=== PATIENT | female | born 1985 | race Caucasian/White ===

== ENCOUNTER 2017-04-14 20:22 | Observation (INO) | payer MEDICAID | END 2017-04-14 21:43 | disposition home or self-care (01) | DRG 566 | LOC: LDRP 20:22 | PROVIDERS: ADMIT Obstetrics & Gynecology; ATTEND Obstetrics & Gynecology | DX: O26.893 Other specified pregnancy related conditions, third trimester (principal); R10.9 Unspecified abdominal pain; Z3A.39 39 weeks gestation of pregnancy | CPT/HCPCS: 59025; 81002; G0378 ==

== ENCOUNTER 2017-04-24 21:47 | Inpatient (IN) | payer MEDICAID ==
[~2017-04-24] VITALS: Ht 157.5 cm; Wt 103.4 kg
[2017-04-24] MEDS ORDERED: LACTATED RINGER'S 1,000 ML IV SCH (22:05)
[2017-04-24] MEDS ORDERED: LACT. RINGERS/OXYTOCIN 20UNITS 1,000 ML IV SCH (22:05)
[2017-04-24] MEDS ORDERED: METHYLERGONOVINE MALEATE 0.2 MG/ML AMP IM PRN (22:15)
[2017-04-24] MEDS ORDERED: DERMOPLAST 60ML BOTTLE TOP PRN (22:15)
[2017-04-24] MEDS ORDERED: NALBUPHINE HCL 10 MG/1ml INJECTION IV PRN (22:15)
[2017-04-24] MEDS ORDERED: LIDOCAINE 2%HCL (LOCAL ANESTH.) INJ 20ML MDV IJ PRN (22:15)
[2017-04-24] MEDS ORDERED: PHISODERM TOP SOLN 240ML BTL TOP PRN (22:15)
[2017-04-24] MEDS ORDERED: WITCH HAZEL-GLYCERIN PAD TOP PRN (22:15)
[2017-04-24 22:32] LABS: Basophils # (auto) 0 uL; Basophils % (auto) 0.4 % (0.0-2.0); CONDITION Y; Eosinophils # (auto) 0.1 uL; Eosinophils % (auto) 0.5 % (0.0-7.0); Hematocrit 37.7 % (36.0-46.0); Hemoglobin 12.8 g/dL (12.2-16.2); Lymphocytes # (auto) 2.4 uL; Lymphocytes % (auto) 24.8 % (10.0-50.0); Mean Corpuscular Hemoglobin 32.7 pg (28.0-32.0); Mean Corpuscular Hgb Conc. 33.9 g/dL (32.0-36.0); Mean Corpuscular Volume 96.5 fL (80.0-100.0); Mean Platelet Volume 7.8 fL (7.4-10.4); Monocytes # (auto) 0.7 uL; Monocytes % (auto) 7.1 % (0.0-12.0); Neutrophils # (auto) 6.4 uL; Neutrophils % (auto) 67.2 % (37.0-80.0); Platelet Count (auto) 399 10^3/uL (140-450); Red Cell Distribution Width 14.9 % (11.6-16.0); White Blood Cell 9.6 10^3/uL (4.4-10.8)
[2017-04-24 22:41] LABS: Urine Bilirubin Negative (Negative); Urine Blood Negative /uL (Negative); Urine Color Yellow (Yellow); Urine Glucose Normal (Normal); Urine Ketone Negative (Negative); Urine Nitrite Negative (Negative); Urine RBC 8 /hpf (0 - 4); Urine Squamous Epithelial Cell FEW /hpf (<5); Urine Urobilinogen Normal (Negative)
[2017-04-24 22:49] LABS: INR 0.88 (0.9-1.15); Partial Thromboplastin Time 26.8 sec (22.64-33.71); Prothrombin Time 9.6 sec (9.37-12.3)
[2017-04-24 23:02] LABS: Albumin 2.5 g/dL (3.4-5.0); BUN/Creatinine Ratio 14.6; Bilirubin, Total 0.2 mg/dL (0.2-1.0); Calcium 9.1 mg/dL (8.5-10.1); Potassium 3.7 mmol/L (3.5-5.1); Total Protein 6.4 g/dL (6.4-8.2)
[2017-04-25] MEDS ORDERED: PROMETHAZINE HCL 25 MG/ML 1ML IV PRN (02:00)
[2017-04-25] MEDS ORDERED: PREN-96 PO (03:20)
[2017-04-25] MEDS ORDERED: ACETAMINOPHEN 325 MG TAB PO PRN (08:15)
[2017-04-25] MEDS: IBUPROFEN 600 MG TAB PO PRN ×3 (08:19→19:00)
[2017-04-25 11:58] VITALS: BP 110/60
[2017-04-25] MEDS ORDERED: NIFEdipine 10 MG CAP PO SCH (14:00)
[2017-04-25] MEDS ORDERED: TETANUS-DIPTH-ACEL PERTUSSIS 0.5ML SYRG IM ONE (14:15)
[2017-04-25] MEDS ORDERED: RHO (D) IMMUNE GLOBULIN 300 MCG INJ IM ONE (15:30)
[2017-04-25 15:59] VITALS: BP 113/57
[2017-04-25 20:22] VITALS: BP 110/68
[2017-04-25 23:30] VITALS: BP 115/70
[2017-04-26 04:30] VITALS: BP 115/70
[2017-04-26] MEDS: IBUPROFEN 600 MG TAB PO PRN (05:43)
[2017-04-26 06:52] VITALS: BP 101/63
== END 2017-04-26 09:55 | disposition home or self-care (01) | DRG 560 ==
LOC: LDRP 21:47
PROVIDERS: ADMIT Obstetrics & Gynecology; ATTEND Obstetrics & Gynecology
PROC: 10E0XZZ Delivery of Products of Conception, External Approach (ICD-10-PCS; principal; 2017-04-25)
PROC: 4A0HXCZ Measurement of Products of Conception, Cardiac Rate, External Approach (ICD-10-PCS; 2017-04-25)
PROC: 3E0P7GC Introduction of Other Therapeutic Substance into Female Reproductive, Via Natural or Artificial Opening (ICD-10-PCS; 2017-04-25)
PROC: 30233S1 Transfusion of Nonautologous Globulin into Peripheral Vein, Percutaneous Approach (ICD-10-PCS; 2017-04-26)
DX: O48.0 Post-term pregnancy (principal); O40.3XX0 Polyhydramnios, third trimester, not applicable or unspecified; Z37.0 Single live birth; Z3A.40 40 weeks gestation of pregnancy; Z23 Encounter for immunization
CPT/HCPCS: 36415; 59025; 59409; 80053; 80307; 81001; 85025; 85610; 85730; 86850; 86900; 86901; 90384; 90715; 96365; 96366; J2590

== ENCOUNTER → 2020-02-14 | Emergency (ER) | payer MEDICAID ==
[~2020-02-14] VITALS: Ht 154.9 cm; Wt 101.6 kg
[~2020-02-14] MED LIST: LIDOCAINE 1% HCL (LOCAL ANESTH.) INJ 20ML MDV ID ONE; PREN-96 PO
[2020-02-14 19:35] VITALS: BP 130/84
== END | disposition home or self-care (01) ==
LOC: ER 17:57
DX: L02.414 Cutaneous abscess of left upper limb (principal); L03.114 Cellulitis of left upper limb; F17.210 Nicotine dependence, cigarettes, uncomplicated
CPT/HCPCS: 10060; 99282; J2001

== ENCOUNTER 2020-02-16 18:08 | Emergency (ER) | payer MEDICAID ==
[~2020-02-16] VITALS: Ht 154.9 cm; Wt 99.8 kg
[~2020-02-16 18:08] MED LIST changes: -LIDOCAINE 1% HCL (LOCAL ANESTH.) INJ 20ML MDV ID ONE
[2020-02-16 20:10] VITALS: BP 103/64
== END 2020-02-16 21:07 | disposition home or self-care (01) ==
LOC: ER 18:08
DX: L02.414 Cutaneous abscess of left upper limb (principal); F17.210 Nicotine dependence, cigarettes, uncomplicated

== ENCOUNTER 2020-02-18 18:58 | Emergency (ER) | payer MEDICAID ==
[~2020-02-18] VITALS: Ht 154.9 cm; Wt 99.8 kg
[2020-02-18 22:11] VITALS: BP 93/64
== END 2020-02-18 22:23 | disposition home or self-care (01) ==
LOC: ER 18:59
DX: L02.414 Cutaneous abscess of left upper limb (principal); F17.210 Nicotine dependence, cigarettes, uncomplicated; F12.10 Cannabis abuse, uncomplicated; F15.10 Other stimulant abuse, uncomplicated; Z48.00 Encounter for change or removal of nonsurgical wound dressing
CPT/HCPCS: 99281; C1887

== ENCOUNTER 2020-02-20 18:08 | Emergency (ER) | payer MEDICAID ==
[~2020-02-20] VITALS: Ht 154.9 cm; Wt 99.8 kg
[2020-02-20 18:15] VITALS: BP 133/74
== END 2020-02-20 18:49 | disposition home or self-care (01) ==
LOC: ER 18:09
DX: Z48.01 Encounter for change or removal of surgical wound dressing (principal)